=== PATIENT | male | born 1945 | race Caucasian/White ===

== ENCOUNTER → 2017-03-01 | Outpatient (CLI) | payer MEDICARE, OTHER | END | disposition home or self-care (01) | LOC: PUL 02-28 13:46 | PROVIDERS: ATTEND Internal Medicine Cardiovascular Disease | DX: I48.91 Unspecified atrial fibrillation (principal); I48.92 Unspecified atrial flutter; E78.00 Pure hypercholesterolemia, unspecified; I10 Essential (primary) hypertension; I35.1 Nonrheumatic aortic (valve) insufficiency; M17.0 Bilateral primary osteoarthritis of knee | CPT/HCPCS: 94010; 94726; 94729 ==

== ENCOUNTER 2017-11-11 21:45 | Inpatient (IN) | END 2017-11-12 17:30 | disposition home or self-care (01) | DRG 310 ==

== ENCOUNTER → 2018-04-19 | Outpatient (CLI) | END | disposition home or self-care (01) ==

== ENCOUNTER 2018-06-01 16:31 | Emergency (ER) | END 2018-06-02 16:40 | disposition left against medical advice (07) ==

== ENCOUNTER 2018-08-19 09:46 | Emergency (ER) | payer MEDICARE, OTHER ==
[~2018-08-19] VITALS: Ht 208.3 cm; Wt 105.0 kg
[~2018-08-19 09:46] MED LIST: AMIO200T4 PO; AMLO2.5T78 PO; APIX5TAB PO; ASC500 PO; BUDE3CAP PO; DIAZ5TAB4 PO; GLUC-153 PO; MAGN400T28 PO; METO-319 PO; OMEG-134 PO; PANT40TA4 PO; PRAV40TA76 PO; TAMS0.4C2 PO; VALS80TA2 PO; ZOLP10TA5 PO; [UNRECOGNIZED DRUG - CODE] PO
[2018-08-19 09:49] VITALS: Ht 208.3 cm; Wt 105.0 kg
[2018-08-19] MEDS ORDERED: DEXAMETHASONE 10 MG/ML 1 ML INJ IM ONE (11:30)
[2018-08-19] MEDS ORDERED: HYDROCODONE/APAP (5/325) TAB PO ONE (11:30)
[2018-08-19] MEDS ORDERED: METHOCARBAMOL 750 MG TAB PO ONE (11:30)
[2018-08-19] MEDS ORDERED: IBUP-1561 PO (13:41)
[2018-08-19] MEDS ORDERED: HYDR-4011 PO (13:41)
[2018-08-19] MEDS ORDERED: METH750T93 PO (13:41)
--- NOTE | 2018-08-19 13:42 | ERD ---
ER Documentation Chief Complaint Chief Complaint lower back pain since last night, no injury ROS All systems reviewed and are negative except as per history of present illness. Medications Home Meds Active Scripts Ibuprofen* (Motrin*) 400 Mg Tab, 400 MG PO Q6H PRN for PAIN AND OR ELEVATED TEMP, #30 TAB Prov:FRANCHESKA LORENZ DO 08/19/18 Methocarbamol* (Robaxin*) 750 Mg Tablet, 750 MG PO TID PRN for muscle spasm, #30 TAB Prov:FRANCHESKA LORENZ DO 08/19/18 Hydrocodone/Acetaminophen ([place] 5-325 Tablet) 1 Each Tablet, 1 EACH PO Q6H PRN for PAIN, #10 TAB Prov:FRANCHESKA LORENZ DO 08/19/18 Metoprolol Succinate* (Toprol XL*) 50 Mg Tab.er.24h, 25 MG PO BID, #30 TAB Prov:FRANCHESCA MENA MD 11/12/17 Amiodarone Hcl* (Amiodarone Hcl*) 200 Mg Tablet, 200 MG PO QAM, #30 TAB Prov:FRANCHESCA MENA MD 11/12/17 Reported Medications Glucosamine/Msm/Chondroitin A (GLUCOSAMINE CHONDROIT MSM TAB) 1 Each Tablet, 1 EACH PO BID, TAB 11/11/17 [place]-3/Dha/Epa/Fish Oil (Fish Oil [place]-3 EC 1,200 mg) 1 Each Capsule.dr, 1 EACH PO BID 11/11/17 Magnesium Oxide* (Magnesium Oxide*) 400 Mg Tablet, 400 MG PO QAM, TAB 11/11/17 Ascorbic Acid (Vitamin C) 500 Mg Tab, 1000 MG PO BID, TAB 11/11/17 Bioflavonoids/Mv,Fe,Min (Life-Pack Men's) 0.8 Mg Combo..pkg, 0.8 MG PO BID TAKE ONE 5-PACK-QAM AND ONE QHS 11/11/17 Amlodipine Besylate* (Amlodipine Besylate*) 2.5 Mg Tablet, 2.5 MG PO DAILY, #30 TAB INSTEAD OF CLONIDINE HCL 0.1MG 11/11/17 Zolpidem Tartrate* (Zolpidem Tartrate*) 10 Mg Tablet, 10 MG PO QHS PRN for INSOMNIA, #30 TAB 11/11/17 Diazepam* (Diazepam*) 5 Mg Tablet, 5 MG PO NEEDED, TAB REPLACED LORAZEPAM 0.5MG-1/2 TAB NEEDED 11/11/17 Valsartan* (Diovan*) 80 Mg Tablet, 80 MG PO BID, TAB 11/11/17 Apixaban* (Eliquis*) 5 Mg Tablet, 5 MG PO BID, TAB 11/11/17 Tamsulosin Hcl* (Tamsulosin Hcl*) 0.4 Mg Cap.er.24h, 0.4 MG PO HS, CAP 11/11/17 Pravastatin Sodium* (Pravastatin Sodium*) 40 Mg Tablet, 40 MG PO HS, TAB 11/11/17 Pantoprazole* (Pantoprazole*) 40 Mg Tablet.dr, 40 MG PO AC BREAKFAST, TAB 11/11/17 Budesonide EC* (Budesonide EC*) 3 Mg Capdr...er, 3 MG PO QAM, TAB 11/11/17 Allergies Allergies: Coded Allergies: No Known Allergy (Verified , 11/11/17) PMhx/Soc History of Surgery: Yes Anesthesia Reaction: No Hx Neurological Disorder: No Hx Respiratory Disorders: No Hx Cardiac Disorders: Yes (aflutter, afib) Hx Psychiatric Problems: Yes (anxiety) Hx Miscellaneous Medical Probl: No Hx Alcohol Use: No Hx Substance Use: Yes (PO THC for sleeping ) Hx Tobacco Use: No Smoking Status: Never smoker Physical Exam Vitals Vital Signs Date Temp Pulse Resp B/P (MAP) Pulse Ox O2 O2 Flow FiO2 Time Delivery Rate 08/19/18 96.8 65 18 149/67 98 09:49 (94) Physical Exam Const: No acute distress Head: Atraumatic Eyes: Normal Conjunctiva ENT: Normal External Ears, Nose and Mouth. Neck: Full range of motion. No meningismus. Resp: Clear to auscultation bilaterally Cardio: Regular rate and rhythm, no murmurs Abd: Soft, non tender, non distended. Normal bowel sounds Skin: No petechiae or rashes Back: No midline or flank tenderness Ext: No cyanosis, or edema Neur: Awake and alert Psych: Normal Mood and Affect Result Diagram: 08/19/18 1147 08/19/18 1147 Results 24 hrs Laboratory Tests Test 08/19/18 11:47 White Blood Count 7.4 10^3/ul Red Blood Count 4.26 10^6/ul Hemoglobin 13.4 g/dl Hematocrit 39.1 % Mean Corpuscular Volume 91.8 fl Mean Corpuscular Hemoglobin 31.5 pg Mean Corpuscular Hemoglobin Concent 34.3 g/dl Red Cell Distribution Width 11.9 % Platelet Count 163 10^3/UL Mean Platelet Volume 10.9 fl Immature Granulocytes % 0.300 % Neutrophils % 73.2 % Lymphocytes % 16.8 % Monocytes % 8.2 % Eosinophils % 1.2 % Basophils % 0.3 % Nucleated Red Blood Cells % 0.0 /100WBC Immature Granulocytes # 0.020 10^3/ul Neutrophils # 5.4 10^3/ul Lymphocytes # 1.3 10^3/ul Monocytes # 0.6 10^3/ul Eosinophils # 0.1 10^3/ul Basophils # 0.0 10^3/ul Nucleated Red Blood Cells # 0.0 10^3/ul Urine Color YELLOW Urine Clarity SLIGHTLY CLOUDY Urine pH 6.0 Urine Specific [place] 1.023 Urine Ketones NEGATIVE mg/dL Urine Nitrite NEGATIVE mg/dL Urine Bilirubin NEGATIVE mg/dL Urine Urobilinogen NEGATIVE mg/dL Urine Leukocyte Esterase NEGATIVE Michele/ul Urine Microscopic RBC 1 /HPF Urine Microscopic WBC 1 /HPF Urine Hemoglobin NEGATIVE mg/dL Urine Glucose NEGATIVE mg/dL Urine Total Protein NEGATIVE mg/dl Sodium Level 141 mmol/L Potassium Level 4.7 mmol/L Chloride Level 99 mmol/L Carbon Dioxide Level 34 mmol/L Anion Gap 8 Blood Urea Nitrogen 25 mg/dl Creatinine 0.97 mg/dl Est Glomerular Filtrat Rate mL/min mL/min Glucose Level 130 mg/dl Calcium Level 9.8 mg/dl Total Bilirubin 0.9 mg/dl Direct Bilirubin 0.00 mg/dl Indirect Bilirubin 0.9 mg/dl Aspartate Amino Transf (AST/SGOT) 29 IU/L Alanine Aminotransferase (ALT/SGPT) 47 IU/L Alkaline Phosphatase 63 IU/L Total Protein 7.4 g/dl Albumin 4.6 g/dl Globulin 2.80 g/dl Albumin/Globulin Ratio 1.64 Lipase 38 U/L Current Medications Medications Dose Sig/Stephanie Start Time Status Last (Trade) Ordered Route PRN Stop Time Admin Dose Reason Admin 10 mg ONCE ONCE 08/19/18 DC 08/19/18 Dexamethasone IM 11:30 08/19/18 11:59 (Decadron) 11:33 1 tab ONCE ONCE 08/19/18 DC 08/19/18 Acetaminophen PO 11:30 08/19/18 11:58 / 11:33 Hydrocodone Bitart ([place] (5/325)) 750 mg ONCE ONCE 08/19/18 DC 08/19/18 Methocarbamol PO 11:30 08/19/18 11:58 (Robaxin) 11:33 Departure Diagnosis: Primary Impression: Back pain Back pain location: low back pain Chronicity: acute Back pain laterality: unspecified Sciatica presence: unspecified whether sciatica present Qualified Codes: M54.5 - Low back pain Condition: Fair Patient Instructions: Back Pain (Acute Or Chronic) Referrals: BEBETO MONTES MD- (PCP) Additional Instructions: Call your primary care doctor TOMORROW for an appointment during the next 1-2 days.See the doctor sooner or return here if your condition worsens before your appointment time. FRANCHESKA LORENZ DO Aug 19, 2018 13:42
[2018-08-19 13:49] VITALS: BP 134/72; PULSE 68; RESP 16
== END 2018-08-19 13:51 | disposition home or self-care (01) ==
LOC: FTE 09:46
DX: M54.5 Low back pain (principal)
CPT/HCPCS: 36415; 74176; 80053; 81001; 83690; 85025; 96372; 99285; J1100; 81003